=== PATIENT | female | born 1955 | race Caucasian/White ===

== ENCOUNTER 2016-12-13 18:09 | Outpatient (CLI) ==
--- NOTE | 2016-12-14 07:54 | DI ---
Exam: Four x-rays of the thoracic spine. Comparison: None available. Reason for exam: Thoracolumbar pain. FINDINGS: No acute fracture or listhesis. The vertebral bodies and intervertebral body disc space heights are well maintained. There is mild degenerative disease with anterior osteophyte formation most notably in the lower cervical/upper thoracic spine. There is a slightly exaggerated thoracic k yphotic curve. Impression: 1. No acute fracture or listhesis. 2. Mild degenerative disease with osteophyte formation.
== END 2016-12-13 18:10 | disposition home or self-care (01) ==
LOC: RAD 18:09
PROVIDERS: ATTEND Nurse Practitioner
DX: M54.5 Low back pain (principal)

== ENCOUNTER 2017-01-06 10:11 | Outpatient (CLI) ==
--- NOTE | 2017-01-06 22:11 | MRI ---
EXAM: Lumbar spine MRI without contrast. HISTORY: Low back pain. COMPARISON: Thoracic spine radiographs 12/13/2016. TECHNIQUE: Multiplanar, multisequence MR images were acquired of the lumbar spine without contrast. FINDINGS: Five lumbar-type vertebra are present. There is 10 degrees thoracolumbar levoscoliosis c entered at L2-3. The lumbar vertebra are normal in height and intrinsic bone marrow signal. There is minor lumbar ventral spondylosis and disc desiccation at L5-S1. Conus medullaris ends at L1 and has normal signal intensity. The partially visualized liver, spleen and adrenal glands are normal. Bilateral extrarenal pelves a re present. 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 T12-L1: The intervertebral disc is normal. L1-2: The intervertebral disc is normal. L2-3: There is a minor disc bulge that is asymmetric to the left which is considered physiologic. Minor bilateral facet arthropathy and ligamentum flavum hypertrophy is present. There is no central canal stenosis or foraminal stenosis. L3-4: The intervertebral disc is normal. There is minor bilateral facet arthropathy. L4-5: The intervertebral disc is normal. There is mild left hypertrophic facet arthropathy and mil d bilateral ligamentum flavum hypertrophy. L5-S1: There is a small posterior disc bulge that is asymmetric to the right with a small superimpo sed right posterolateral disc protrusion and annular fissure that extends to the medial right neural foramen. Bilateral perineural cysts are present. There is no foraminal stenosis or central canal stenosis. IMPRESSION: 1. Small right posterolateral disc protrusion L5-S1 that extends into the medial right neural magda en. 2. 10 degrees thoracolumbar levoscoliosis centered at L2-3.
== END 2017-01-06 10:12 | disposition home or self-care (01) ==
LOC: RAD 10:11
PROVIDERS: ATTEND Nurse Practitioner
DX: M54.5 Low back pain (principal)